=== PATIENT | male | born 1950 | race Two or more races ===

== ENCOUNTER 2025-01-11 17:37 | Inpatient (IN) | payer MEDICARE, OTHER ==
[~2025-01-11] VITALS: Ht 172.7 cm; Wt 81.0 kg
[2025-01-11 17:58] VITALS: PULSE 88; RESP 16; O2SAT 99
[2025-01-11] MEDS ORDERED: 0.9% SODIUM CHLORIDE 10 ML SYRINGE IVP PRN (18:15)
[2025-01-11 18:18] VITALS: PULSE 70; RESP 16; O2SAT 99
[2025-01-11] MEDS ORDERED: PROPOFOL 1000 MG/ISO-OSM 100 ML ONE (18:38)
[2025-01-11] MEDS: PROPOFOL 1000 MG/ISO-OSM 100 ML IV PRN (18:44)
[2025-01-11 18:45] LABS: ANION GAP 11 mmol/L (8-16); BASOPHILS % (AUTO) 0.3 % (0.0-2.0); CALCIUM, TOTAL 8.6 mg/dL (8.8-10.5); CARBON DIOXIDE 23 mmol/L (22-29); CHLORIDE 102 mmol/L (98-107); CREATININE 3.89 mg/dL (0.60-1.30); EOSINOPHILS % (AUTO) 0.2 % (1.0-6.0); GLOMERULAR FILTR. RATE CALC 15 mL/min (>60); GLUCOSE,RANDOM 196 mg/dL (70-110); HEMATOCRIT 29.1 % (41-53); HEMOGLOBIN 8.8 g/dL (13.5-17.5); LYMPHOCYTES # (AUTO) 0.4 K/uL (1.0-4.8); LYMPHOCYTES % (AUTO) 3.1 % (22.0-44.0); MEAN CORPUSCULAR HEMOGLOBIN 34.1 pg (26.0-34.0); MEAN CORPUSCULAR HGB CONC 30.3 G/dL (31.0-37.0); MEAN CORPUSCULAR VOLUME 113 fL (80-100); MONOCYTES # (AUTO) 0.1 K/uL (0.1-1.0); MONOCYTES % (AUTO) 0.6 % (2.0-9.0); NEUTROPHILS # (AUTO) 13.8 K/uL (1.8-7.7); PLATELET COUNT (AUTO) 365 K/uL (150-450); POTASSIUM 3.9 mmol/L (3.5-5.1); RED BLOOD CELL COUNT(AUTO) 2.59 MIL/uL (4.50-5.90); RED CELL DISTRIBUTION WIDTH 21.1 % (11.5-14.5); SODIUM SERUM 136 mmol/L (136-145); UREA NITROGEN, BLOOD 54 mg/dL (7-18); WHITE BLOOD COUNT (AUTO) 14.4 K/uL (4.5-11.0)
[2025-01-11] MEDS: SODIUM CHLORIDE 0.9% 1,550 ML IV ONE (18:45)
[2025-01-11 18:48] LABS: PROTHROMBIN TIME 16.7 SEC (9.4-11.6)
[2025-01-11 18:49] LABS: NEUTROPHILS % (AUTO) 95.8 % (40.0-70.0)
[2025-01-11 18:52] LABS: B-TYPE NATRIURETIC PEPTIDE 3880 pg/mL (0-100)
[2025-01-11 18:53] LABS: TROPONIN I-HIGH SENSITIVITY 12 ng/L (<76)
[2025-01-11 18:54] LABS: APPEARANCE,URINE CLEAR (CLEAR); BILIRUBIN,URINE NEGATIVE (NEGATIVE); COLOR,URINE LIGHT YELLOW (YELLOW); GLUCOSE, URINE (UA) 300-500 mg/dL (NEGATIVE); KETONES,URINE NEGATIVE (NEGATIVE); LEUKOCYTE ESTERASE ,URINE NEGATIVE (NEGATIVE); NITRATE,URINE NEGATIVE (NEGATIVE); OCCULT BLOOD,URINE NEGATIVE (NEGATIVE); PROTEIN,URINE 100-200,SEE CONFIRM mg/dL (NEGATIVE); SPECIFIC GRAVITIY, URINE 1.008 (1.003-1.030); UROBILINOGEN,URINE <=1.0 mg/dL (<=1.0)
[2025-01-11 18:55] VITALS: PULSE 124; RESP 20; O2SAT 100
[2025-01-11 18:55] LABS: LACTIC ACID 6.9 mmol/L (0.4-2.0)
[2025-01-11] MEDS: ACETAMINOPHEN 650 MG/ISO-OSM 65 ML IV ONE (19:09)
[2025-01-11 19:10] LABS: BACTERIA,URINE Few /HPF (None Seen); RBC,URINE 0-2 /HPF (0-2); SQUAMOUS EPITHELIAL CELL,UR Few /LPF (None Seen); SULFOSALICYLIC ACID,URINE 1+ (Negative); WBC,URINE 0-2 /HPF (0-5)
[2025-01-11] MEDS: VANCOMYCIN 1GM/WATER(PEG/NADA) 200 ML IV ONE (19:27)
[2025-01-11] MEDS: FentaNYL CIT 1000MCG/0.9% NACL 100 ML IV PRN (19:34)
[2025-01-11 20:16] LABS: ABG BASE EXCESS -8.3 mmol/L (-2.0-3.0); ABG CARBOXYHEMOGLOBIN 0.2 % (0.5-1.5); ABG HCO3 17.9 mmol/L (21.0-28.0); ABG METHEMOGLOBIN 1.2 % (0.0-1.5); ABG OXYGEN CONTENT 14.1 mL/dL (15.0-23.0); ABG OXYGEN SATURATION 99.7 % (94.0-98.0); ABG OXYHEMOGLOBIN 98.3 % (94.0-98.0); ABG PCO2 53 mmHg (32.0-48.0); ABG TOTAL HEMOGLOBIN 9.2 G/dL (13.5-17.5); SOURCE, BLOOD GAS ARTERIAL; TEMPERATURE, FAHRENHEIT, BG 99.4 FAHREN (96.0-98.6)
[2025-01-11] MEDS: SODIUM BICARBONATE [ADULT] 8.4% 50 MEQ/50 ML SYRINGE IVP ONE (20:26)
[2025-01-11 20:27] LABS: ABG PH 7.193 (7.350-7.450); PO2, ARTERIAL BG 492.6 mmHg (83.0-108.0)
[2025-01-11 20:28] LABS: ABG A-A DIFF O2 166.5 mmHg (10-20.0); O2 DEVICE,BLOOD GAS VENT (ROOM AIR); PEEP,BG 5 cm H2O; SITE, BLOOD GAS RT FEMORAL; VT, ABG 350 ml
[2025-01-11 21:30] VITALS: BP 81/55; PULSE 104; RESP 26; TEMP 98.2; O2SAT 95
[2025-01-11] MEDS ORDERED: HYDROCODONE/ACETAMINOPHEN 5-325 MG TABLET PO PRN (21:30)
[2025-01-11] MEDS ORDERED: ONDANSETRON HCL 4 MG/2 ML VIAL IVP PRN (21:30)
[2025-01-11] MEDS ORDERED: ZOLPIDEM TARTRATE 5 MG TABLET PO PRN (21:30)
[2025-01-11] MEDS ORDERED: BISACODYL 10 MG RECTAL RECTAL SUPPOSITORY PR PRN (21:30)
[2025-01-11] MEDS ORDERED: MAGNESIUM HYDROXIDE SUSPENSION 30 ML UDCUP PO PRN (21:30)
[2025-01-11] MEDS ORDERED: MORPHINE SULFATE 2 MG/ML SYRINGE IVP PRN (21:30)
[2025-01-11 22:10] VITALS: PULSE 78; RESP 26; O2SAT 98
[2025-01-11] MEDS: SODIUM CHLORIDE 0.9% 1,000 ML IV ONE (22:24)
[2025-01-11] MEDS: PIPERACILLIN SODIUM/TAZOBACTAM 2.25 GM in DEXTROSE 5%-WATER 50 ML IV SCH (22:24)
[2025-01-11] MEDS: ETHYL ALCOHOL 62% ANTISEPTIC NASAL SANITIZER 0.6 ML AMPUL NASAL SCH (22:24)
[2025-01-11 22:48] LABS: ABG BASE EXCESS -3.8 mmol/L (-2.0-3.0); ABG CARBOXYHEMOGLOBIN 0.3 % (0.5-1.5); ABG HCO3 21.9 mmol/L (21.0-28.0); ABG METHEMOGLOBIN 0.1 % (0.0-1.5); ABG OXYGEN CONTENT 13.6 mL/dL (15.0-23.0); ABG OXYGEN SATURATION 99.1 % (94.0-98.0); ABG OXYHEMOGLOBIN 98.7 % (94.0-98.0); ABG PCO2 30 mmHg (32.0-48.0); ABG PH 7.451 (7.350-7.450); ABG TOTAL HEMOGLOBIN 9.6 G/dL (13.5-17.5); PO2, ARTERIAL BG 138.6 mmHg (83.0-108.0); SOURCE, BLOOD GAS ARTERIAL; TEMPERATURE, FAHRENHEIT, BG 97.6 FAHREN (96.0-98.6)
[2025-01-11 22:49] LABS: SITE, BLOOD GAS RT FEMORAL
[2025-01-11 22:50] LABS: ABG A-A DIFF O2 185.4 mmHg (10-20.0); O2 DEVICE,BLOOD GAS VENT (ROOM AIR); PEEP,BG 5 cm H2O; VT, ABG 450 ml
[2025-01-12] VITALS (15 sets, daily range): BP systolic 100–129; BP diastolic 24–82; PULSE 94–114; RESP 20–23; TEMP 97.3–98.8; O2SAT 92–100
[2025-01-12] MEDS: HEPARIN SODIUM,PORCINE 5,000 UNITS/ML VIAL SQ SCH (00:42)
[2025-01-12] MEDS ORDERED: VANCOMYCIN HCL 1 GM in DEXTROSE 5%-WATER 250 ML IV PRN (02:00)
[2025-01-12 02:45] LABS: GLUCOMETER DEV NAME(LOC) ICUN.5; GLUCOSE,POINT OF CARE 188 MG/DL (70-110)
[2025-01-12 05:38] LABS: BASOPHILS % (AUTO) 0.1 % (0.0-2.0); EOSINOPHILS % (AUTO) 0.1 % (1.0-6.0); HEMATOCRIT 30.3 % (41-53); HEMOGLOBIN 9.5 g/dL (13.5-17.5); LYMPHOCYTES # (AUTO) 0.9 K/uL (1.0-4.8); LYMPHOCYTES % (AUTO) 2.7 % (22.0-44.0); MEAN CORPUSCULAR HEMOGLOBIN 34.5 pg (26.0-34.0); MEAN CORPUSCULAR HGB CONC 31.4 G/dL (31.0-37.0); MEAN CORPUSCULAR VOLUME 110 fL (80-100); MONOCYTES # (AUTO) 0.9 K/uL (0.1-1.0); MONOCYTES % (AUTO) 2.9 % (2.0-9.0); NEUTROPHILS # (AUTO) 30.7 K/uL (1.8-7.7); PLATELET COUNT (AUTO) 417 K/uL (150-450); RED BLOOD CELL COUNT(AUTO) 2.76 MIL/uL (4.50-5.90); RED CELL DISTRIBUTION WIDTH 20.4 % (11.5-14.5)
[2025-01-12 05:48] LABS: NEUTROPHILS % (AUTO) 94.2 % (40.0-70.0); WHITE BLOOD COUNT (AUTO) 32.5 K/uL (4.5-11.0)
[2025-01-12 05:51] LABS: CALCIUM, TOTAL 8.9 mg/dL (8.8-10.5); CREATININE 3.57 mg/dL (0.60-1.30); POTASSIUM 3.6 mmol/L (3.5-5.1)
[2025-01-12] MEDS: VANCOMYCIN HCL 750 MG in DEXTROSE 5%-WATER 250 ML IV ONE (07:58)
[2025-01-12] MEDS ORDERED: SODIUM CHLORIDE 0.9% 250 ML IV ONE ×2 (08:13→10:39)
[2025-01-12] MEDS: PANTOPRAZOLE SODIUM 40 MG/VIAL IVP SCH (09:00)
[2025-01-12] MEDS ORDERED: PANTOPRAZOLE SODIUM 40 MG DR TABLET PO SCH (09:00)
[2025-01-12] MEDS: DOCUSATE SODIUM 100 MG/10 ML LIQUID UDCUP GT SCH (09:00)
[2025-01-12] MEDS ORDERED: DOCUSATE SODIUM 100 MG CAPSULE PO SCH (09:00)
[2025-01-12] MEDS: PIPERACILLIN SODIUM/TAZOBACTAM 2.25 GM in DEXTROSE 5%-WATER 50 ML IV SCH (13:05)
[2025-01-12] MEDS: *CLINICAL-LEVOFLOXACIN IVPB DOSING CLINICAL ONE (14:39)
[2025-01-12 15:17] LABS: ALBUMIN 1.6 g/dL (3.4-5.0); BILIRUBIN,DIRECT 0.5 mg/dL (0.00-0.20); BILIRUBIN,TOTAL 0.8 mg/dL (0.1-1.0)
[2025-01-12] MEDS: SODIUM CHLORIDE 0.9% 1,000 ML IV SCH (16:33)
[2025-01-12] MEDS: LEVOFLOXACIN 750 MG/D5% WATER 150 ML IV ONE (16:33)
[2025-01-12 21:41] LABS: GLUCOMETER DEV NAME(LOC) ICUN.5; GLUCOSE,POINT OF CARE 138 MG/DL (70-110)
[2025-01-13] VITALS (20 sets, daily range): BP systolic 68–153; BP diastolic 40–135; PULSE 102–139; RESP 20–25; TEMP 97.9–100; O2SAT 89–100
[2025-01-13 00:25] LABS: GLUCOMETER DEV NAME(LOC) ICU.S6; GLUCOSE,POINT OF CARE 118 MG/DL (70-110)
[2025-01-13] MEDS: NOREPINEPHRINE 8 MG/0.9 % NACL 250 ML IV PRN (04:38)
[2025-01-13 05:56] LABS: GLUCOMETER DEV NAME(LOC) ICU.S6; GLUCOSE,POINT OF CARE 116 MG/DL (70-110)
[2025-01-13 06:14] LABS: CALCIUM, TOTAL 8.8 mg/dL (8.8-10.5); CREATININE 3.54 mg/dL (0.60-1.30); POTASSIUM 4.8 mmol/L (3.5-5.1)
[2025-01-13] MEDS: PHENYLEPHRINE HCL 400 MG in DEXTROSE 5%-WATER 210 ML IV PRN (08:02)
[2025-01-13] MEDS: EPOETIN ALFA 10,000 UNITS/ML 2 ML VIAL SQ SCH (08:09)
[2025-01-13 09:03] LABS: BASOPHILS % (AUTO) 0.9 % (0.0-2.0); EOSINOPHILS % (AUTO) 1.8 % (1.0-6.0); HEMATOCRIT 26.7 % (41-53); HEMOGLOBIN 8.3 g/dL (13.5-17.5); LYMPHOCYTES # (AUTO) 1.4 K/uL (1.0-4.8); LYMPHOCYTES % (AUTO) 7.1 % (22.0-44.0); MEAN CORPUSCULAR HEMOGLOBIN 34.1 pg (26.0-34.0); MEAN CORPUSCULAR VOLUME 110 fL (80-100); MONOCYTES # (AUTO) 1.2 K/uL (0.1-1.0); MONOCYTES % (AUTO) 6.3 % (2.0-9.0); NEUTROPHILS # (AUTO) 16.3 K/uL (1.8-7.7); NEUTROPHILS % (AUTO) 83.9 % (40.0-70.0); PLATELET COUNT (AUTO) 326 K/uL (150-450); RED BLOOD CELL COUNT(AUTO) 2.43 MIL/uL (4.50-5.90); RED CELL DISTRIBUTION WIDTH 20.7 % (11.5-14.5); WHITE BLOOD COUNT (AUTO) 19.5 K/uL (4.5-11.0)
[2025-01-13] MEDS: PIPERACILLIN SODIUM/TAZOBACTAM 2.25 GM in DEXTROSE 5%-WATER 50 ML IV SCH (11:28)
[2025-01-13] MEDS ORDERED: ALBUMIN HUMAN 25%-12.5GM/50ML IV BOTTLE ONE (12:00)
[2025-01-13] MEDS ORDERED: HEPARIN SODIUM,PORCINE 1,000 UNITS/ML VIAL ONE (12:00)
[2025-01-13 12:17] LABS: RBC MORPHOLOGY COMMENT ABNORMAL RBC MORPH
[2025-01-13] MEDS: *CLINICAL-MEROPENEM DOSING CLINICAL ONE (12:43)
[2025-01-13 13:26] LABS: GLUCOMETER DEV NAME(LOC) ICUN.5; GLUCOSE,POINT OF CARE 148 MG/DL (70-110)
[2025-01-13] MEDS: MEROPENEM 1 GM in SODIUM CHLORIDE 0.9% 50 ML IV ONE (16:38)
[2025-01-13] MEDS: MIDODRINE HCL 5 MG TABLET PO SCH (16:42)
[2025-01-13 18:21] LABS: GLUCOMETER DEV NAME(LOC) ICUN.5; GLUCOSE,POINT OF CARE 131 MG/DL (70-110)
[2025-01-13] MEDS: VASOPRESSIN 40 UNITS in DEXTROSE 5%-WATER 98 ML IV PRN (21:15)
[2025-01-14] VITALS (22 sets, daily range): BP systolic 96–141; BP diastolic 50–70; PULSE 75–116; RESP 20–23; TEMP 96.5–100.1; O2SAT 93–100
[2025-01-14 01:46] LABS: GLUCOMETER DEV NAME(LOC) ICU.S6; GLUCOSE,POINT OF CARE 117 MG/DL (70-110)
[2025-01-14 05:46] LABS: HEMATOCRIT 26.3 % (41-53); HEMOGLOBIN 7.9 g/dL (13.5-17.5); MEAN CORPUSCULAR VOLUME 120 fL (80-100); PLATELET COUNT (AUTO) 300 K/uL (150-450); RED CELL DISTRIBUTION WIDTH 21.1 % (11.5-14.5); WHITE BLOOD COUNT (AUTO) 15.9 K/uL (4.5-11.0)
[2025-01-14 05:58] LABS: CALCIUM, TOTAL 9.2 mg/dL (8.8-10.5); CREATININE 2.38 mg/dL (0.60-1.30); POTASSIUM 3.9 mmol/L (3.5-5.1); VANCOMYCIN,RANDOM 12.6 mcg/mL (25.0-50.0)
[2025-01-14 07:24] LABS: BAND NEUTROPHILS % (MANUAL) 11 % (0-5); LYMPHOCYTES % (MANUAL) 11 % (22-44); MONOCYTES % (MANUAL) 3 % (2-9); RBC MORPHOLOGY COMMENT ABNORMAL RBC MORPH; SEGMENTED NEUTROPHILS % 75 % (40-70); TOTAL CELLS COUNTED 100
[2025-01-14 07:26] LABS: GLUCOMETER DEV NAME(LOC) ICUN.5; GLUCOSE,POINT OF CARE 147 MG/DL (70-110)
[2025-01-14] MEDS ORDERED: DEXTROSE 50%-WATER 25 GM/50 ML SYRINGE IVP PRN (07:30)
[2025-01-14 07:31] LABS: MAGNESIUM 1.8 mg/dL (1.80-2.40); PHOSPHORUS 2.8 mg/dL (2.5-4.9)
[2025-01-14] MEDS: VANCOMYCIN 1GM/WATER(PEG/NADA) 200 ML IV ONE (11:25)
[2025-01-14 12:00] LABS: GLUCOMETER DEV NAME(LOC) ICU.S6; GLUCOSE,POINT OF CARE 133 MG/DL (70-110)
[2025-01-14] MEDS: LEVOFLOXACIN 500 MG/D5% WATER 100 ML IV SCH (15:02)
[2025-01-14] MEDS: MEROPENEM 500 MG in SODIUM CHLORIDE 0.9% 50 ML IV SCH (15:02)
[2025-01-14 17:00] LABS: CANDIDA AURIS PCR,SURVEILLANCE Not Detected C(t) (Not Detectd)
[2025-01-14 20:16] LABS: GLUCOMETER DEV NAME(LOC) ICU.S6; GLUCOSE,POINT OF CARE 127 MG/DL (70-110)
[2025-01-15] VITALS (23 sets, daily range): BP systolic 66–147; BP diastolic 42–91; PULSE 73–119; RESP 10–26; TEMP 96.7–99.5; O2SAT 98–100
[2025-01-15 02:50] LABS: GLUCOMETER DEV NAME(LOC) ICU.S6; GLUCOSE,POINT OF CARE 90 MG/DL (70-110)
[2025-01-15 05:33] LABS: HEMATOCRIT 21.7 % (41-53); MEAN CORPUSCULAR HEMOGLOBIN 34.7 pg (26.0-34.0); MEAN CORPUSCULAR HGB CONC 32.3 G/dL (31.0-37.0); MEAN CORPUSCULAR VOLUME 107 fL (80-100); PLATELET COUNT (AUTO) 222 K/uL (150-450); RED BLOOD CELL COUNT(AUTO) 2.02 MIL/uL (4.50-5.90); RED CELL DISTRIBUTION WIDTH 19.4 % (11.5-14.5); WHITE BLOOD COUNT (AUTO) 11.7 K/uL (4.5-11.0)
[2025-01-15 05:43] LABS: CALCIUM, TOTAL 8.7 mg/dL (8.8-10.5); CREATININE 1.53 mg/dL (0.60-1.30); MAGNESIUM 1.7 mg/dL (1.80-2.40); PHOSPHORUS 1.6 mg/dL (2.5-4.9)
[2025-01-15 06:30] LABS: BAND NEUTROPHILS % (MANUAL) 9 % (0-5); EOSINOPHILS % (MANUAL) 5 % (1-6); LYMPHOCYTES % (MANUAL) 6 % (22-44); MONOCYTES % (MANUAL) 12 % (2-9); RBC MORPHOLOGY COMMENT ABNORMAL RBC MORPH; SEGMENTED NEUTROPHILS % 68 % (40-70); TOTAL CELLS COUNTED 100
[2025-01-15] MEDS: POTASSIUM PHOS,M-BASIC-D-BASIC 15 MEQ in DEXTROSE 5%-WATER 50 ML IV ONE (11:58)
[2025-01-15] MEDS: DEXTROSE 5%-0.45% SODIUM CHL 1,000 ML IV SCH (11:59)
[2025-01-15] MEDS: POTASSIUM CHLORIDE 10% 40 MEQ/30 ML LIQUID UDCUP NG ONE (11:59)
[2025-01-15 12:05] LABS: GLUCOMETER DEV NAME(LOC) ICUN.5; GLUCOSE,POINT OF CARE 83 MG/DL (70-110)
[2025-01-15 14:36] LABS: ABG CARBOXYHEMOGLOBIN 0.4 % (0.5-1.5); ABG HCO3 21.4 mmol/L (21.0-28.0); ABG METHEMOGLOBIN 0.9 % (0.0-1.5); ABG OXYGEN CONTENT 11.9 mL/dL (15.0-23.0); ABG OXYGEN SATURATION 98.5 % (94.0-98.0); ABG OXYHEMOGLOBIN 97.2 % (94.0-98.0); ABG PCO2 40 mmHg (32.0-48.0); ABG PH 7.348 (7.350-7.450); ABG TOTAL HEMOGLOBIN 8.6 G/dL (13.5-17.5); ALLEN TEST, BLOOD GAS Positive; O2 DEVICE,BLOOD GAS VENTILATOR (ROOM AIR); PO2, ARTERIAL BG 105.6 mmHg (83.0-108.0); SITE, BLOOD GAS RT RADIAL; SOURCE, BLOOD GAS ARTERIAL; TEMPERATURE, FAHRENHEIT, BG 99.1 FAHREN (96.0-98.6)
[2025-01-15 14:37] LABS: CPAP, BG 5 cm H2O; PRESSURE SUPPORT, BG 8 cm H2O; SPONTANEOUS VT, BG 1008 ml; VENT MODE, BG CPAP (ROOM AIR)
[2025-01-15] MEDS ORDERED: ALBUMIN HUMAN 25%-12.5GM/50ML IV BOTTLE IV ONE (17:30)
[2025-01-15] MEDS ORDERED: HEPARIN SODIUM,PORCINE 1,000 UNITS/ML VIAL IVP ONE (17:30)
[2025-01-15 19:41] LABS: GLUCOMETER DEV NAME(LOC) ICUN.5; GLUCOSE,POINT OF CARE 128 MG/DL (70-110)
[2025-01-15 19:41] LABS: GLUCOMETER DEV NAME(LOC) ICUN.5; GLUCOSE,POINT OF CARE 89 MG/DL (70-110)
[2025-01-15 23:38] LABS: HEMATOCRIT 32.1 % (41-53)
[2025-01-16] VITALS (23 sets, daily range): BP systolic 90–129; BP diastolic 50–92; PULSE 96–142; RESP 20–29; TEMP 96.8–99.9; O2SAT 92–100
[2025-01-16] MEDS: INSULIN LISPRO 100 UNITS/ML SQ PRN (00:23)
[2025-01-16 00:30] LABS: GLUCOMETER DEV NAME(LOC) ICU.S6; GLUCOSE,POINT OF CARE 169 MG/DL (70-110)
[2025-01-16] MEDS ORDERED: SODIUM CHLORIDE 0.9% 250 ML IV ONE (05:45)
[2025-01-16 05:48] LABS: BASOPHILS % (AUTO) 0.6 % (0.0-2.0); EOSINOPHILS % (AUTO) 0.9 % (1.0-6.0); HEMATOCRIT 30.9 % (41-53); LYMPHOCYTES # (AUTO) 0.7 K/uL (1.0-4.8); LYMPHOCYTES % (AUTO) 5.7 % (22.0-44.0); MEAN CORPUSCULAR HEMOGLOBIN 32.5 pg (26.0-34.0); MEAN CORPUSCULAR HGB CONC 32.3 G/dL (31.0-37.0); MEAN CORPUSCULAR VOLUME 101 fL (80-100); MONOCYTES # (AUTO) 1.8 K/uL (0.1-1.0); MONOCYTES % (AUTO) 14.6 % (2.0-9.0); NEUTROPHILS # (AUTO) 9.6 K/uL (1.8-7.7); NEUTROPHILS % (AUTO) 78.2 % (40.0-70.0); PLATELET COUNT (AUTO) 236 K/uL (150-450); RED BLOOD CELL COUNT(AUTO) 3.07 MIL/uL (4.50-5.90); RED CELL DISTRIBUTION WIDTH 23.1 % (11.5-14.5); WHITE BLOOD COUNT (AUTO) 12.2 K/uL (4.5-11.0)
[2025-01-16 05:58] LABS: CALCIUM, TOTAL 8.9 mg/dL (8.8-10.5); CREATININE 2.17 mg/dL (0.60-1.30); MAGNESIUM 1.6 mg/dL (1.80-2.40); PHOSPHORUS 1.8 mg/dL (2.5-4.9); POTASSIUM 4.3 mmol/L (3.5-5.1)
[2025-01-16 06:55] LABS: RBC MORPHOLOGY COMMENT ABNORMAL RBC MORPH
[2025-01-16] MEDS: ATORVASTATIN CALCIUM 20 MG TABLET PO SCH (08:20)
[2025-01-16] MEDS ORDERED: HEPARIN SODIUM,PORCINE 1,000 UNITS/ML VIAL ONE (12:00)
[2025-01-16] MEDS ORDERED: ALBUMIN HUMAN 25%-12.5GM/50ML IV BOTTLE ONE (12:00)
[2025-01-16] MEDS ORDERED: CARB50DR OU (14:21)
[2025-01-16] MEDS: ACETAMINOPHEN 325 MG TABLET PO PRN (15:49)
[2025-01-16 18:10] LABS: GLUCOMETER DEV NAME(LOC) ICUN.5; GLUCOSE,POINT OF CARE 151 MG/DL (70-110)
[2025-01-17] VITALS (23 sets, daily range): BP systolic 89–122; BP diastolic 42–72; PULSE 81–115; RESP 20–26; TEMP 97–99.2; O2SAT 97–100
[2025-01-17 00:01] LABS: GLUCOMETER DEV NAME(LOC) ICU.S6; GLUCOSE,POINT OF CARE 135 MG/DL (70-110)
[2025-01-17 05:57] LABS: BASOPHILS % (AUTO) 0.7 % (0.0-2.0); EOSINOPHILS % (AUTO) 1.9 % (1.0-6.0); HEMATOCRIT 30.1 % (41-53); HEMOGLOBIN 9.6 g/dL (13.5-17.5); LYMPHOCYTES # (AUTO) 1.4 K/uL (1.0-4.8); LYMPHOCYTES % (AUTO) 9.4 % (22.0-44.0); MEAN CORPUSCULAR HEMOGLOBIN 32.3 pg (26.0-34.0); MEAN CORPUSCULAR VOLUME 101 fL (80-100); MONOCYTES # (AUTO) 1.7 K/uL (0.1-1.0); MONOCYTES % (AUTO) 11.8 % (2.0-9.0); NEUTROPHILS % (AUTO) 76.2 % (40.0-70.0); PLATELET COUNT (AUTO) 190 K/uL (150-450); RED BLOOD CELL COUNT(AUTO) 2.97 MIL/uL (4.50-5.90); RED CELL DISTRIBUTION WIDTH 22.6 % (11.5-14.5); WHITE BLOOD COUNT (AUTO) 14.5 K/uL (4.5-11.0)
[2025-01-17 06:48] LABS: RBC MORPHOLOGY COMMENT ABNORMAL RBC MORPH
[2025-01-17 07:26] LABS: ALBUMIN 1.9 g/dL (3.4-5.0); CALCIUM, TOTAL 9.2 mg/dL (8.8-10.5); CREATININE 1.7 mg/dL (0.60-1.30); MAGNESIUM 1.7 mg/dL (1.80-2.40); PHOSPHORUS 1.6 mg/dL (2.5-4.9); POTASSIUM 3.8 mmol/L (3.5-5.1); TOTAL PROTEIN, SERUM 5.8 g/dL (6.4-8.2)
[2025-01-17 08:05] LABS: GLUCOMETER DEV NAME(LOC) ICUN.5; GLUCOSE,POINT OF CARE 186 MG/DL (70-110)
[2025-01-17 08:05] LABS: GLUCOMETER DEV NAME(LOC) ICU.S6; GLUCOSE,POINT OF CARE 163 MG/DL (70-110)
[2025-01-17] MEDS: SODIUM PHOS,M-BASIC-D-BASIC 20 MMOL in DEXTROSE 5%-WATER 150 ML IV ONE (09:09)
[2025-01-17] MEDS: CASPOFUNGIN ACETATE 70 MG in SODIUM CHLORIDE 0.9% 250 ML IV ONE (15:36)
[2025-01-17 18:11] LABS: GLUCOMETER DEV NAME(LOC) ICU.S6; GLUCOSE,POINT OF CARE 152 MG/DL (70-110)
[2025-01-17] MEDS: HEPARIN SODIUM,PORCINE 1,000 UNITS/ML VIAL IVCATH ONE ×2 (18:15)
[2025-01-17] MEDS: ALBUMIN HUMAN 25%-25GM/100ML 100 ML IV PRN (19:50)
[2025-01-17 21:36] LABS: GLUCOMETER DEV NAME(LOC) ICUN.5; GLUCOSE,POINT OF CARE 121 MG/DL (70-110)
[2025-01-18] VITALS (14 sets, daily range): BP systolic 106–124; BP diastolic 58–84; PULSE 91–114; RESP 20–28; TEMP 97.2–99.5; O2SAT 92–100
[2025-01-18 00:20] LABS: GLUCOMETER DEV NAME(LOC) ICU.S6; GLUCOSE,POINT OF CARE 140 MG/DL (70-110)
[2025-01-18 05:20] LABS: GLUCOMETER DEV NAME(LOC) ICUN.5; GLUCOSE,POINT OF CARE 176 MG/DL (70-110)
[2025-01-18 05:43] LABS: BASOPHILS % (AUTO) 0.6 % (0.0-2.0); EOSINOPHILS % (AUTO) 1.5 % (1.0-6.0); HEMATOCRIT 27.4 % (41-53); LYMPHOCYTES # (AUTO) 0.7 K/uL (1.0-4.8); LYMPHOCYTES % (AUTO) 5.1 % (22.0-44.0); MEAN CORPUSCULAR HEMOGLOBIN 32.7 pg (26.0-34.0); MEAN CORPUSCULAR HGB CONC 32.7 G/dL (31.0-37.0); MEAN CORPUSCULAR VOLUME 100 fL (80-100); MONOCYTES # (AUTO) 1.3 K/uL (0.1-1.0); MONOCYTES % (AUTO) 9.9 % (2.0-9.0); NEUTROPHILS % (AUTO) 82.9 % (40.0-70.0); PLATELET COUNT (AUTO) 153 K/uL (150-450); RED BLOOD CELL COUNT(AUTO) 2.74 MIL/uL (4.50-5.90); RED CELL DISTRIBUTION WIDTH 22.1 % (11.5-14.5); WHITE BLOOD COUNT (AUTO) 13.3 K/uL (4.5-11.0)
[2025-01-18 05:58] LABS: BILIRUBIN,TOTAL 1.2 mg/dL (0.1-1.0); CALCIUM, TOTAL 8.3 mg/dL (8.8-10.5); CREATININE 1.3 mg/dL (0.60-1.30); POTASSIUM 3.5 mmol/L (3.5-5.1); TOTAL PROTEIN, SERUM 5.2 g/dL (6.4-8.2)
[2025-01-18 06:57] LABS: RBC MORPHOLOGY COMMENT ABNORMAL RBC MORPH
[2025-01-18] MEDS: CASPOFUNGIN ACETATE 50 MG in SODIUM CHLORIDE 0.9% 250 ML IV SCH (16:06)
[2025-01-18 17:26] LABS: GLUCOMETER DEV NAME(LOC) ICUN.5; GLUCOSE,POINT OF CARE 169 MG/DL (70-110)
[2025-01-19] VITALS (11 sets, daily range): BP systolic 77–125; BP diastolic 48–103; PULSE 85–98; RESP 15–26; TEMP 95.1–97.5; O2SAT 92–100
[2025-01-19 00:05] LABS: GLUCOMETER DEV NAME(LOC) ICU.S6; GLUCOSE,POINT OF CARE 127 MG/DL (70-110)
[2025-01-19 00:05] LABS: GLUCOMETER DEV NAME(LOC) ICU.S6; GLUCOSE,POINT OF CARE 133 MG/DL (70-110)
[2025-01-19 06:15] LABS: BASOPHILS % (AUTO) 0.8 % (0.0-2.0); EOSINOPHILS % (AUTO) 4.5 % (1.0-6.0); HEMATOCRIT 26.9 % (41-53); HEMOGLOBIN 8.9 g/dL (13.5-17.5); LYMPHOCYTES # (AUTO) 1.3 K/uL (1.0-4.8); LYMPHOCYTES % (AUTO) 12.4 % (22.0-44.0); MEAN CORPUSCULAR HEMOGLOBIN 33.2 pg (26.0-34.0); MEAN CORPUSCULAR HGB CONC 33.1 G/dL (31.0-37.0); MEAN CORPUSCULAR VOLUME 100 fL (80-100); MONOCYTES # (AUTO) 1.2 K/uL (0.1-1.0); MONOCYTES % (AUTO) 11.8 % (2.0-9.0); NEUTROPHILS # (AUTO) 7.4 K/uL (1.8-7.7); NEUTROPHILS % (AUTO) 70.5 % (40.0-70.0); PLATELET COUNT (AUTO) 173 K/uL (150-450); RED BLOOD CELL COUNT(AUTO) 2.68 MIL/uL (4.50-5.90); RED CELL DISTRIBUTION WIDTH 22.2 % (11.5-14.5); WHITE BLOOD COUNT (AUTO) 10.4 K/uL (4.5-11.0)
[2025-01-19 06:21] LABS: ALBUMIN 1.6 g/dL (3.4-5.0); CALCIUM, TOTAL 8.2 mg/dL (8.8-10.5); CREATININE 1.74 mg/dL (0.60-1.30); POTASSIUM 3.3 mmol/L (3.5-5.1)
[2025-01-19 09:46] LABS: GLUCOMETER DEV NAME(LOC) ICUN.5; GLUCOSE,POINT OF CARE 143 MG/DL (70-110)
[2025-01-19 09:46] LABS: GLUCOMETER DEV NAME(LOC) ICUN.5; GLUCOSE,POINT OF CARE 160 MG/DL (70-110)
[2025-01-19] MEDS ORDERED: ONDANSETRON HCL 4 MG/2 ML VIAL IVP PRN (14:15)
[2025-01-19] MEDS ORDERED: DiphenhydrAMINE HCL 50 MG/ML VIAL IVP PRN (14:15)
[2025-01-19] MEDS: MORPHINE SULFATE 100 MG/NS/PF 100 ML IV PRN (14:49)
[2025-01-20] VITALS: BP 83/48; PULSE 86; RESP 16; TEMP 94.3; O2SAT 87
[2025-01-20 04:00] VITALS: BP 74/51; PULSE 87; RESP 13; TEMP 93.4; O2SAT 83
[2025-01-20 08:00] VITALS: BP 78/52; PULSE 85; RESP 14; TEMP 92.9; O2SAT 88
[2025-01-20 12:00] VITALS: BP 68/43; PULSE 83; RESP 8; TEMP 93.6; O2SAT 94
[2025-01-20 16:00] VITALS: BP 68/46; PULSE 85; RESP 15; TEMP 94.2; O2SAT 94
[2025-01-20 18:00] VITALS: RESP 16
== END 2025-01-21 01:12 | DRG 870 ==
LOC: EMS 17:37 → EDH 19:53 → ICU 21:15
PROVIDERS: ADMIT Internal Medicine; ATTEND Internal Medicine
PROC: 0BH17EZ Insertion of Endotracheal Airway into Trachea, Via Natural or Artificial Opening (ICD-10-PCS; principal; 2025-01-11)
PROC: 5A1955Z Respiratory Ventilation, Greater than 96 Consecutive Hours (ICD-10-PCS; 2025-01-11)
PROC: 5A1D70Z Performance of Urinary Filtration, Intermittent, Less than 6 Hours Per Day (ICD-10-PCS; 2025-01-13)
PROC: 5A1D70Z Performance of Urinary Filtration, Intermittent, Less than 6 Hours Per Day (ICD-10-PCS; 2025-01-14)
PROC: 30233N1 Transfusion of Nonautologous Red Blood Cells into Peripheral Vein, Percutaneous Approach (ICD-10-PCS; 2025-01-15)
PROC: 5A1D70Z Performance of Urinary Filtration, Intermittent, Less than 6 Hours Per Day (ICD-10-PCS; 2025-01-16)
PROC: 5A1D70Z Performance of Urinary Filtration, Intermittent, Less than 6 Hours Per Day (ICD-10-PCS; 2025-01-17)
DX: A41.50 Gram-negative sepsis, unspecified (principal); R53.2 Functional quadriplegia; N18.6 End stage renal disease; R65.21 Severe sepsis with septic shock; J96.01 Acute respiratory failure with hypoxia; I82.611 Acute embolism and thrombosis of superficial veins of right upper extremity; I42.9 Cardiomyopathy, unspecified; N25.81 Secondary hyperparathyroidism of renal origin; Z16.12 Extended spectrum beta lactamase (ESBL) resistance; I50.40 Unspecified combined systolic (congestive) and diastolic (congestive) heart failure; M86.8X8 Other osteomyelitis, other site; E11.22 Type 2 diabetes mellitus with diabetic chronic kidney disease; D63.1 Anemia in chronic kidney disease; Z66 Do not resuscitate; E11.51 Type 2 diabetes mellitus with diabetic peripheral angiopathy without gangrene; E11.69 Type 2 diabetes mellitus with other specified complication; Z51.5 Encounter for palliative care; Z99.3 Dependence on wheelchair; M10.9 Gout, unspecified; E78.5 Hyperlipidemia, unspecified; I48.91 Unspecified atrial fibrillation; B96.89 Other specified bacterial agents as the cause of diseases classified elsewhere; F32.9 Major depressive disorder, single episode, unspecified; E87.6 Hypokalemia; E83.42 Hypomagnesemia; R16.0 Hepatomegaly, not elsewhere classified; K86.89 Other specified diseases of pancreas; E11.40 Type 2 diabetes mellitus with diabetic neuropathy, unspecified; Z86.73 Personal history of transient ischemic attack (TIA), and cerebral infarction without residual deficits; Z87.891 Personal history of nicotine dependence; Z99.2 Dependence on renal dialysis; Z79.899 Other long term (current) drug therapy
CPT/HCPCS: 31500; 36600; 70450; 71045; 71250; 72192; 74150; 76700; 80048; 80053; 80076; 80202; 81001; 81002; 82105; 82805; 82962; 83605; 83735; 83880; 84100; 84145; 84484; 85014; 85018; 85025; 85610; 86850; 86900; 86901; 86923; 87040; 87070; 87077; 87081; 87106; 87186; 87205; 87340; 87481; 90935; 93005; 93306; 93970; 94002; 94003; 99291; J0131; J0637; J0885; J1644; J1956; J2185; J2270; J2370; J2470; J2543; J2704; J3010; J3370; J3490; J7030; J7050; J7060; P9016; P9047; 36415-L1; 36415-TC; X7700